=== PATIENT | male | born 1965 | race Caucasian/White ===

== ENCOUNTER 2024-02-12 11:17 | Inpatient (IN) | payer OTHER ==
[~2024-02-12] VITALS: Ht 182.9 cm; Wt 85.7 kg
[2024-02-12 11:17] VITALS: BP 148/84; PULSE 83; RESP 20; TEMP 99.1; O2SAT 97
[2024-02-12 14:34] LABS: BASOPHILS % (AUTO) 0.4 % (0.0-2.0); EOSINOPHILS # (AUTO) 0.1 K/uL (0-0.4); EOSINOPHILS % (AUTO) 0.9 % (0.0-4.0); HEMATOCRIT 34.4 % (36-52); HEMOGLOBIN 11.8 g/dL (12.0-18.0); LYMPHOCYTES # (AUTO) 1.8 K/uL (2.0-11.5); LYMPHOCYTES % (AUTO) 20.6 % (20.5-51.1); MEAN CORPUSCULAR HEMOGLOBIN 28 pg (27-31); MEAN CORPUSCULAR HGB CONC 34 g/dL (33-37); MEAN CORPUSCULAR VOLUME 82.5 fL (80-94); MONOCYTES # (AUTO) 1.2 K/uL (0.8-1.0); MONOCYTES % (AUTO) 13.2 % (1.7-9.3); NEUTROPHILS # (AUTO) 5.8 K/uL (1.8-7.7); NEUTROPHILS % (AUTO) 64.9 % (42.2-75.2); PLATELET COUNT (AUTO) 356 K/uL (140-450); RED BLOOD CELL COUNT(AUTO) 4.17 MIL/uL (4.20-6.10); WHITE BLOOD COUNT (AUTO) 8.9 K/uL (4.8-10.8)
[2024-02-12 14:47] LABS: ANION GAP 10.3 (8-16); CALCIUM 8.1 mg/dL (8.5-10.1); CARBON DIOXIDE 30.8 mmol/L (21-32); CREATININE 0.9 mg/dL (0.6-1.3); POTASSIUM 3.1 mmol/L (3.5-5.1)
[2024-02-12 15:20] LABS: ALBUMIN 2.8 g/dL (3.4-5.0); BILIRUBIN,DIRECT 0.2 mg/dL (0.0-0.3); TOTAL BILIRUBIN 0.7 mg/dL (0.0-1.0); TOTAL PROTEIN, SERUM 8.5 g/dL (6.4-8.2)
[2024-02-12] MEDS: NACL 0.9% 1,000 ML IV SCH ×2 (17:10→18:06)
[2024-02-12 17:13] LABS: INR 1.03 (0.8-1.2); PARTIAL THROMBOPLASTIN TIME 34.6 secs (22-35.6); PROTHROMBIN TIME 10.8 secs (10.8-13.4)
[2024-02-12] MEDS ORDERED: VANCOMYCIN 1,000 MG VIAL ONE (17:13)
[2024-02-12] MEDS ORDERED: cefTRIAXone 1,000 MG VIAL ONE (17:13)
[2024-02-12 17:19] LABS: LACTIC ACID 1.3 mmol/L (0.4-2.0)
[2024-02-12] MEDS: VANCOMYCIN 1,000 MG in DEXTROSE 5% 250 ML IV ONE (17:35)
[2024-02-12] MEDS: POTASSIUM CHLORIDE 20% 40 MEQ/15 ML UDC PO ONE (17:38)
[2024-02-12] MEDS: ACETAMINOPHEN 325 MG TAB PO ONE (17:39)
[2024-02-12] MEDS ORDERED: HYDROcodone/APAP 5/325 MG 1 TAB TAB PO PRN (17:40)
[2024-02-12] MEDS ORDERED: MORPHINE SULFATE 4 MG/ML SYR ONE (19:42)
[2024-02-12] MEDS ORDERED: ONDANSETRON 4 MG/2 ML VIAL ONE (19:42)
[2024-02-12] MEDS: MORPHINE SULFATE 4 MG/ML SYR IVP PRN (20:14)
[2024-02-12] MEDS: ONDANSETRON 4 MG/2 ML VIAL IVP PRN (20:14)
[2024-02-12 21:50] VITALS: BP 152/72; PULSE 93; RESP 19; TEMP 98.8; O2SAT 99
[2024-02-13 04:00] VITALS: BP 148/57; PULSE 107; RESP 18; TEMP 98.8; O2SAT 96
[2024-02-13 06:54] LABS: BASOPHILS % (AUTO) 0.3 % (0.0-2.0); EOSINOPHILS # (AUTO) 0.2 K/uL (0-0.4); EOSINOPHILS % (AUTO) 1.8 % (0.0-4.0); HEMATOCRIT 31.9 % (36-52); HEMOGLOBIN 10.9 g/dL (12.0-18.0); LYMPHOCYTES # (AUTO) 1.9 K/uL (2.0-11.5); LYMPHOCYTES % (AUTO) 22.7 % (20.5-51.1); MEAN CORPUSCULAR HEMOGLOBIN 28 pg (27-31); MEAN CORPUSCULAR HGB CONC 34 g/dL (33-37); MONOCYTES # (AUTO) 0.9 K/uL (0.8-1.0); MONOCYTES % (AUTO) 10.6 % (1.7-9.3); NEUTROPHILS # (AUTO) 5.4 K/uL (1.8-7.7); NEUTROPHILS % (AUTO) 64.6 % (42.2-75.2); PLATELET COUNT (AUTO) 273 K/uL (140-450); RED BLOOD CELL COUNT(AUTO) 3.85 MIL/uL (4.20-6.10); WHITE BLOOD COUNT (AUTO) 8.4 K/uL (4.8-10.8)
[2024-02-13 07:27] LABS: ANION GAP 12.3 (8-16); CALCIUM 8.1 mg/dL (8.5-10.1); CARBON DIOXIDE 27.5 mmol/L (21-32); CREATININE 1.1 mg/dL (0.6-1.3); POTASSIUM 3.8 mmol/L (3.5-5.1)
[2024-02-13 12:00] VITALS: BP 140/57; PULSE 107; RESP 18; TEMP 98.8; O2SAT 96
[2024-02-13] MEDS: MAG SULF 2000 MG/WATER PREMIX 100 ML IV SCH (12:50)
[2024-02-13] MEDS ORDERED: METF-346 PO (18:39)
[2024-02-13] MEDS ORDERED: CARV3.12 PO (18:39)
[2024-02-13] MEDS ORDERED: LISI-486 PO (18:39)
[2024-02-13 20:00] VITALS: BP 122/94; PULSE 110; RESP 18; TEMP 96.7; O2SAT 96
[2024-02-14] MEDS ORDERED: DEXTROSE 50% 50 ML SYR IVP PRN (03:20)
[2024-02-14 04:00] VITALS: BP 143/70; PULSE 110; RESP 18; TEMP 98.1; O2SAT 96
[2024-02-14] MEDS: BLOOD GLUCOSE MONITORING 1 DEV DEV FS SCH (06:41)
[2024-02-14 06:54] LABS: BASOPHILS % (AUTO) 0.5 % (0.0-2.0); EOSINOPHILS % (AUTO) 0.5 % (0.0-4.0); HEMATOCRIT 29.3 % (36-52); HEMOGLOBIN 9.9 g/dL (12.0-18.0); LYMPHOCYTES # (AUTO) 1.4 K/uL (2.0-11.5); LYMPHOCYTES % (AUTO) 17.1 % (20.5-51.1); MEAN CORPUSCULAR HEMOGLOBIN 28 pg (27-31); MEAN CORPUSCULAR HGB CONC 34 g/dL (33-37); MONOCYTES # (AUTO) 0.8 K/uL (0.8-1.0); NEUTROPHILS # (AUTO) 5.8 K/uL (1.8-7.7); NEUTROPHILS % (AUTO) 71.9 % (42.2-75.2); PLATELET COUNT (AUTO) 285 K/uL (140-450); RED BLOOD CELL COUNT(AUTO) 3.53 MIL/uL (4.20-6.10); RED CELL DISTRIBUTION WIDTH 15.1 % (11.6-13.7); WHITE BLOOD COUNT (AUTO) 8.1 K/uL (4.8-10.8)
[2024-02-14 07:56] LABS: ANION GAP 12.1 (8-16); CALCIUM 7.8 mg/dL (8.5-10.1); CARBON DIOXIDE 26.7 mmol/L (21-32); POTASSIUM 3.8 mmol/L (3.5-5.1)
[2024-02-14 08:00] VITALS: PULSE 85; RESP 18
[2024-02-14 12:00] VITALS: BP 140/83; PULSE 88; RESP 18; TEMP 98.5; O2SAT 96
[2024-02-14 20:00] VITALS: BP 150/71; PULSE 95; RESP 18; TEMP 97.8; O2SAT 93
[2024-02-14] MEDS: INSULIN LISPRO SLIDING SCALE 100 UNITS/ML VIAL SUBQ PRN (20:42)
[2024-02-15 04:00] VITALS: BP 149/64; PULSE 93; RESP 18; TEMP 97.9; O2SAT 95
[2024-02-15 06:42] LABS: BASOPHILS # (AUTO) 0.1 K/uL (0.00-0.22); BASOPHILS % (AUTO) 0.6 % (0.0-2.0); EOSINOPHILS # (AUTO) 0.1 K/uL (0-0.4); EOSINOPHILS % (AUTO) 0.8 % (0.0-4.0); HEMOGLOBIN 9.2 g/dL (12.0-18.0); LYMPHOCYTES # (AUTO) 1.5 K/uL (2.0-11.5); LYMPHOCYTES % (AUTO) 16.1 % (20.5-51.1); MEAN CORPUSCULAR HEMOGLOBIN 28 pg (27-31); MEAN CORPUSCULAR HGB CONC 34 g/dL (33-37); MEAN CORPUSCULAR VOLUME 82.8 fL (80-94); MONOCYTES # (AUTO) 0.8 K/uL (0.8-1.0); MONOCYTES % (AUTO) 8.8 % (1.7-9.3); NEUTROPHILS # (AUTO) 6.7 K/uL (1.8-7.7); NEUTROPHILS % (AUTO) 73.7 % (42.2-75.2); PLATELET COUNT (AUTO) 285 K/uL (140-450); RED BLOOD CELL COUNT(AUTO) 3.26 MIL/uL (4.20-6.10); WHITE BLOOD COUNT (AUTO) 9.1 K/uL (4.8-10.8)
[2024-02-15 06:54] LABS: ANION GAP 13.5 (8-16); CALCIUM 7.7 mg/dL (8.5-10.1); CARBON DIOXIDE 26.3 mmol/L (21-32); CREATININE 0.9 mg/dL (0.6-1.3); POTASSIUM 3.8 mmol/L (3.5-5.1)
[2024-02-15 08:00] VITALS: PULSE 90; RESP 18; O2SAT 93
[2024-02-15] MEDS: MAGNESIUM OXIDE 400 MG TAB PO PRN (11:46)
[2024-02-15 12:00] VITALS: BP 134/90; PULSE 90; RESP 18; TEMP 98.3; O2SAT 95
[2024-02-15] MEDS: GAUZE TP SCH (13:00)
[2024-02-15] MEDS: ACETAMINOPHEN 325 MG TAB PO PRN (16:20)
[2024-02-15 20:00] VITALS: BP 145/58; PULSE 87; PULSE 95; RESP 19; RESP 20; TEMP 98.2; O2SAT 100; O2SAT 96
[2024-02-16 04:00] VITALS: BP 146/62; PULSE 95; RESP 19; TEMP 99; O2SAT 96
[2024-02-16 06:38] LABS: BASOPHILS % (AUTO) 0.3 % (0.0-2.0); EOSINOPHILS # (AUTO) 0.2 K/uL (0-0.4); EOSINOPHILS % (AUTO) 1.8 % (0.0-4.0); HEMATOCRIT 26.9 % (36-52); HEMOGLOBIN 9.1 g/dL (12.0-18.0); LYMPHOCYTES # (AUTO) 1.3 K/uL (2.0-11.5); LYMPHOCYTES % (AUTO) 13.8 % (20.5-51.1); MEAN CORPUSCULAR HEMOGLOBIN 28 pg (27-31); MEAN CORPUSCULAR HGB CONC 34 g/dL (33-37); MEAN CORPUSCULAR VOLUME 83.6 fL (80-94); MONOCYTES # (AUTO) 0.8 K/uL (0.8-1.0); MONOCYTES % (AUTO) 8.7 % (1.7-9.3); NEUTROPHILS # (AUTO) 7.1 K/uL (1.8-7.7); NEUTROPHILS % (AUTO) 75.4 % (42.2-75.2); PLATELET COUNT (AUTO) 290 K/uL (140-450); RED BLOOD CELL COUNT(AUTO) 3.22 MIL/uL (4.20-6.10); WHITE BLOOD COUNT (AUTO) 9.4 K/uL (4.8-10.8)
[2024-02-16 07:11] LABS: ANION GAP 13.9 (8-16); CALCIUM 7.9 mg/dL (8.5-10.1); CARBON DIOXIDE 25.8 mmol/L (21-32); CREATININE 0.9 mg/dL (0.6-1.3); POTASSIUM 3.7 mmol/L (3.5-5.1)
[2024-02-16 08:34] VITALS: PULSE 89; RESP 20; O2SAT 99
[2024-02-16 12:00] VITALS: BP 135/57; PULSE 89; RESP 18; TEMP 97.1; O2SAT 96
[2024-02-16 16:00] VITALS: BP 142/98; PULSE 92; RESP 20; TEMP 98.1; O2SAT 96
[2024-02-16 20:00] VITALS: BP 145/54; PULSE 100; RESP 19; TEMP 98.2; O2SAT 96; O2SAT 97
[2024-02-16] MEDS: MAG SULF 2000 MG/WATER PREMIX 50 ML IV ONE (22:08)
[2024-02-17 06:40] LABS: BASOPHILS % (AUTO) 0.6 % (0.0-2.0); EOSINOPHILS # (AUTO) 0.3 K/uL (0-0.4); EOSINOPHILS % (AUTO) 3.5 % (0.0-4.0); HEMATOCRIT 27.6 % (36-52); HEMOGLOBIN 9.4 g/dL (12.0-18.0); LYMPHOCYTES # (AUTO) 1.2 K/uL (2.0-11.5); LYMPHOCYTES % (AUTO) 14.6 % (20.5-51.1); MEAN CORPUSCULAR HEMOGLOBIN 28 pg (27-31); MEAN CORPUSCULAR HGB CONC 34 g/dL (33-37); MEAN CORPUSCULAR VOLUME 82.8 fL (80-94); MONOCYTES # (AUTO) 0.7 K/uL (0.8-1.0); MONOCYTES % (AUTO) 8.5 % (1.7-9.3); NEUTROPHILS # (AUTO) 5.9 K/uL (1.8-7.7); NEUTROPHILS % (AUTO) 72.8 % (42.2-75.2); PLATELET COUNT (AUTO) 331 K/uL (140-450); RED BLOOD CELL COUNT(AUTO) 3.34 MIL/uL (4.20-6.10); RED CELL DISTRIBUTION WIDTH 15.3 % (11.6-13.7); WHITE BLOOD COUNT (AUTO) 8.2 K/uL (4.8-10.8)
[2024-02-17 07:12] LABS: ANION GAP 12.4 (8-16); CALCIUM 8.2 mg/dL (8.5-10.1); CARBON DIOXIDE 27.5 mmol/L (21-32); CREATININE 0.9 mg/dL (0.6-1.3); POTASSIUM 3.9 mmol/L (3.5-5.1)
[2024-02-17 08:00] VITALS: BP 135/65; PULSE 100; PULSE 99; RESP 20; TEMP 98.1; O2SAT 99
[2024-02-17 16:00] VITALS: BP 145/64; PULSE 98; RESP 19; TEMP 97.9; O2SAT 98
[2024-02-17 20:00] VITALS: BP 172/80; PULSE 140; PULSE 96; RESP 18; TEMP 98.5; O2SAT 98; O2SAT 99
[2024-02-17 21:00] VITALS: BP 134/61; PULSE 96
[2024-02-18 04:00] VITALS: BP 126/61; PULSE 90; RESP 18; TEMP 97.5; O2SAT 98
[2024-02-18 08:00] VITALS: BP 140/67; PULSE 86; PULSE 99; RESP 18; RESP 20; TEMP 97.8; O2SAT 100; O2SAT 98
[2024-02-18 12:00] VITALS: BP 140/83; PULSE 86; RESP 20; TEMP 98.5; O2SAT 98
[2024-02-18 20:00] VITALS: BP 127/83; PULSE 88; PULSE 99; RESP 16; TEMP 97.2; O2SAT 100; O2SAT 99
[2024-02-19 04:00] VITALS: BP 132/85; PULSE 79; RESP 16; TEMP 97.2; O2SAT 98
[2024-02-19 07:25] LABS: BASOPHILS % (AUTO) 0.4 % (0.0-2.0); EOSINOPHILS # (AUTO) 0.3 K/uL (0-0.4); EOSINOPHILS % (AUTO) 3.3 % (0.0-4.0); HEMATOCRIT 29.7 % (36-52); HEMOGLOBIN 9.9 g/dL (12.0-18.0); LYMPHOCYTES # (AUTO) 1.1 K/uL (2.0-11.5); LYMPHOCYTES % (AUTO) 13.8 % (20.5-51.1); MEAN CORPUSCULAR HEMOGLOBIN 28 pg (27-31); MEAN CORPUSCULAR HGB CONC 33 g/dL (33-37); MEAN CORPUSCULAR VOLUME 83.6 fL (80-94); MONOCYTES # (AUTO) 0.6 K/uL (0.8-1.0); MONOCYTES % (AUTO) 7.1 % (1.7-9.3); NEUTROPHILS # (AUTO) 6.3 K/uL (1.8-7.7); NEUTROPHILS % (AUTO) 75.4 % (42.2-75.2); PLATELET COUNT (AUTO) 394 K/uL (140-450); RED BLOOD CELL COUNT(AUTO) 3.55 MIL/uL (4.20-6.10); RED CELL DISTRIBUTION WIDTH 15.2 % (11.6-13.7); WHITE BLOOD COUNT (AUTO) 8.3 K/uL (4.8-10.8)
[2024-02-19 07:32] LABS: ANION GAP 13.6 (8-16); CALCIUM 8.2 mg/dL (8.5-10.1); CARBON DIOXIDE 27.1 mmol/L (21-32); CREATININE 0.8 mg/dL (0.6-1.3); POTASSIUM 3.7 mmol/L (3.5-5.1)
[2024-02-19] MEDS: BUPIVACAINE-MPF 0.25% 30 ML VIAL INJ ONE (07:32)
[2024-02-19] MEDS: ceFAZolin 2,000 MG VIAL ONE (07:32)
[2024-02-19] MEDS: LIDOCAINE 2% 1000 MG/50 ML VIAL INJ ONE (07:32)
[2024-02-19 08:00] VITALS: PULSE 99; RESP 16; O2SAT 100
[2024-02-19 12:00] VITALS: BP 146/88; PULSE 99; RESP 16; TEMP 97.7; O2SAT 100
[2024-02-19 12:33] VITALS: PULSE 135
[2024-02-19 16:00] VITALS: PULSE 90
[2024-02-19] MEDS: AMIODARONE 200 MG TAB PO SCH (17:59)
[2024-02-19] MEDS: ECOTRIN 81 MG TABEC PO SCH (17:59)
[2024-02-19 20:00] VITALS: BP 143/90; PULSE 95; RESP 16; TEMP 98.3; O2SAT 99
[2024-02-19] MEDS: carvediloL 3.125 MG TAB PO SCH (21:00)
[2024-02-20] VITALS (10 sets, daily range): BP systolic 114–159; BP diastolic 53–87; PULSE 16–110; RESP 16–18; TEMP 97–97.9; O2SAT 99–100
[2024-02-20 06:40] LABS: BASOPHILS % (AUTO) 0.5 % (0.0-2.0); EOSINOPHILS # (AUTO) 0.2 K/uL (0-0.4); EOSINOPHILS % (AUTO) 2.8 % (0.0-4.0); HEMATOCRIT 25.9 % (36-52); HEMOGLOBIN 8.6 g/dL (12.0-18.0); LYMPHOCYTES # (AUTO) 1.3 K/uL (2.0-11.5); LYMPHOCYTES % (AUTO) 15.5 % (20.5-51.1); MEAN CORPUSCULAR HEMOGLOBIN 28 pg (27-31); MEAN CORPUSCULAR HGB CONC 33 g/dL (33-37); MEAN CORPUSCULAR VOLUME 83.4 fL (80-94); MONOCYTES # (AUTO) 0.6 K/uL (0.8-1.0); MONOCYTES % (AUTO) 7.4 % (1.7-9.3); NEUTROPHILS # (AUTO) 6.2 K/uL (1.8-7.7); NEUTROPHILS % (AUTO) 73.8 % (42.2-75.2); PLATELET COUNT (AUTO) 368 K/uL (140-450); RED BLOOD CELL COUNT(AUTO) 3.11 MIL/uL (4.20-6.10); RED CELL DISTRIBUTION WIDTH 15.6 % (11.6-13.7); WHITE BLOOD COUNT (AUTO) 8.4 K/uL (4.8-10.8)
[2024-02-20 06:55] LABS: INR 1.14 (0.8-1.2); PARTIAL THROMBOPLASTIN TIME 28.8 secs (22-35.6); PROTHROMBIN TIME 11.9 secs (10.8-13.4)
[2024-02-20 07:01] LABS: ANION GAP 13.4 (8-16); CALCIUM 7.9 mg/dL (8.5-10.1); CREATININE 0.8 mg/dL (0.6-1.3); POTASSIUM 3.4 mmol/L (3.5-5.1)
[2024-02-20] MEDS: LOSARTAN 25 MG TAB PO SCH (08:21)
[2024-02-20] MEDS: ATORVASTATIN 20 MG TAB PO SCH (08:22)
[2024-02-20] MEDS: POTASSIUM CHLORIDE 10 MEQ TABER PO PRN (08:23)
[2024-02-20] MEDS ORDERED: LACTULOSE 20 GM/30 ML UDC PO PRN (09:00)
[2024-02-20] MEDS: DOCUSATE SODIUM 100 MG GELCAP PO PRN (17:26)
[2024-02-20] MEDS: HYDROcodone/APAP 5/325 MG 1 TAB TAB PO PRN (17:26)
[2024-02-21] VITALS (7 sets, daily range): BP systolic 123–146; BP diastolic 27–66; PULSE 63–111; RESP 16–18; TEMP 96.9–97.6; O2SAT 98–100
[2024-02-21 07:21] LABS: BASOPHILS # (AUTO) 0.1 K/uL (0.00-0.22); BASOPHILS % (AUTO) 0.8 % (0.0-2.0); EOSINOPHILS # (AUTO) 0.2 K/uL (0-0.4); EOSINOPHILS % (AUTO) 3.1 % (0.0-4.0); HEMATOCRIT 28.7 % (36-52); HEMOGLOBIN 9.6 g/dL (12.0-18.0); LYMPHOCYTES # (AUTO) 1.6 K/uL (2.0-11.5); LYMPHOCYTES % (AUTO) 20.1 % (20.5-51.1); MEAN CORPUSCULAR HEMOGLOBIN 28 pg (27-31); MEAN CORPUSCULAR HGB CONC 34 g/dL (33-37); MONOCYTES # (AUTO) 0.6 K/uL (0.8-1.0); MONOCYTES % (AUTO) 7.6 % (1.7-9.3); NEUTROPHILS # (AUTO) 5.4 K/uL (1.8-7.7); NEUTROPHILS % (AUTO) 68.4 % (42.2-75.2); PLATELET COUNT (AUTO) 427 K/uL (140-450); RED BLOOD CELL COUNT(AUTO) 3.42 MIL/uL (4.20-6.10); RED CELL DISTRIBUTION WIDTH 15.7 % (11.6-13.7)
[2024-02-21 07:41] LABS: ANION GAP 14.7 (8-16); CALCIUM 8.2 mg/dL (8.5-10.1); CARBON DIOXIDE 25.5 mmol/L (21-32); CREATININE 0.9 mg/dL (0.6-1.3); POTASSIUM 4.2 mmol/L (3.5-5.1)
[2024-02-21] MEDS: GABAPENTIN 300 MG CAP PO PRN (21:26)
[2024-02-22] VITALS (9 sets, daily range): BP systolic 127–151; BP diastolic 50–78; PULSE 58–69; RESP 18–20; TEMP 96.6–97.7; O2SAT 94–100
[2024-02-22 07:04] LABS: BASOPHILS % (AUTO) 0.5 % (0.0-2.0); EOSINOPHILS # (AUTO) 0.2 K/uL (0-0.4); EOSINOPHILS % (AUTO) 2.4 % (0.0-4.0); HEMATOCRIT 28.2 % (36-52); HEMOGLOBIN 9.2 g/dL (12.0-18.0); LYMPHOCYTES # (AUTO) 1.8 K/uL (2.0-11.5); LYMPHOCYTES % (AUTO) 21.8 % (20.5-51.1); MEAN CORPUSCULAR HEMOGLOBIN 28 pg (27-31); MEAN CORPUSCULAR HGB CONC 33 g/dL (33-37); MEAN CORPUSCULAR VOLUME 84.9 fL (80-94); MONOCYTES # (AUTO) 0.7 K/uL (0.8-1.0); MONOCYTES % (AUTO) 8.1 % (1.7-9.3); NEUTROPHILS # (AUTO) 5.5 K/uL (1.8-7.7); NEUTROPHILS % (AUTO) 67.2 % (42.2-75.2); PLATELET COUNT (AUTO) 410 K/uL (140-450); RED BLOOD CELL COUNT(AUTO) 3.32 MIL/uL (4.20-6.10); RED CELL DISTRIBUTION WIDTH 16.1 % (11.6-13.7); WHITE BLOOD COUNT (AUTO) 8.1 K/uL (4.8-10.8)
[2024-02-22 07:12] LABS: ANION GAP 12.8 (8-16); CALCIUM 8.1 mg/dL (8.5-10.1); CARBON DIOXIDE 25.2 mmol/L (21-32)
[2024-02-22] MEDS: BUPIVACAINE-MPF 0.5% 30 ML VIAL INJ ONE (07:23)
[2024-02-22] MEDS: HYDROGEN PEROXIDE 3% 240 ML BTL TP ONE (07:23)
[2024-02-22] MEDS: MIDAZOLAM 2 MG/2 ML VIAL ONE (07:44)
[2024-02-22] MEDS: fentaNYL citrate 0.05 MG/ML VIAL ONE (07:45)
[2024-02-22] MEDS: ceFAZolin 2,000 MG VIAL ONE (07:46)
[2024-02-22] MEDS: BUPIVACAINE-MPF 0.25% 30 ML VIAL INJ ONE (08:03)
[2024-02-22] MEDS: LIDOCAINE 2% 1000 MG/50 ML VIAL INJ ONE (08:03)
[2024-02-22] MEDS ORDERED: ONDANSETRON 4 MG/2 ML VIAL IVP PRN (08:25)
[2024-02-22] MEDS ORDERED: HYDROmorphone 1 MG/ML AMP IVP PRN (08:25)
[2024-02-22] MEDS: BLOOD GLUCOSE MONITORING 1 DEV DEV FS ONE (08:25)
[2024-02-23] VITALS: BP 150/48; PULSE 59; PULSE 67; RESP 20; TEMP 97; O2SAT 96
[2024-02-23 04:02] VITALS: PULSE 58
[2024-02-23 06:59] LABS: BASOPHILS % (AUTO) 0.4 % (0.0-2.0); EOSINOPHILS # (AUTO) 0.1 K/uL (0-0.4); EOSINOPHILS % (AUTO) 1.6 % (0.0-4.0); HEMATOCRIT 27.9 % (36-52); HEMOGLOBIN 9.1 g/dL (12.0-18.0); LYMPHOCYTES # (AUTO) 1.9 K/uL (2.0-11.5); MEAN CORPUSCULAR HEMOGLOBIN 28 pg (27-31); MEAN CORPUSCULAR HGB CONC 33 g/dL (33-37); MEAN CORPUSCULAR VOLUME 85.1 fL (80-94); MONOCYTES # (AUTO) 0.6 K/uL (0.8-1.0); MONOCYTES % (AUTO) 7.6 % (1.7-9.3); NEUTROPHILS % (AUTO) 65.4 % (42.2-75.2); PLATELET COUNT (AUTO) 426 K/uL (140-450); RED BLOOD CELL COUNT(AUTO) 3.28 MIL/uL (4.20-6.10); RED CELL DISTRIBUTION WIDTH 16.2 % (11.6-13.7); WHITE BLOOD COUNT (AUTO) 7.6 K/uL (4.8-10.8)
[2024-02-23 07:00] LABS: ANION GAP 14.3 (8-16); CALCIUM 8.1 mg/dL (8.5-10.1); CARBON DIOXIDE 25.1 mmol/L (21-32); POTASSIUM 4.4 mmol/L (3.5-5.1)
[2024-02-23 08:00] VITALS: BP 146/58; PULSE 82; RESP 20; TEMP 96.5; O2SAT 98; O2SAT 99
[2024-02-23 12:00] VITALS: BP 164/60; PULSE 69; RESP 18; TEMP 96.7; O2SAT 98
[2024-02-23] MEDS: oxyCODONE 10 MG TABER PO PRN (15:20)
[2024-02-23 16:00] VITALS: BP 146/64; PULSE 65; RESP 18; TEMP 96.9; O2SAT 99
[2024-02-23 20:00] VITALS: BP 132/60; PULSE 64; PULSE 92; RESP 18; TEMP 97.4; O2SAT 100
[2024-02-23] MEDS: oxyCODONE/APAP 5/325 MG 1 TAB TAB PO PRN (20:57)
[2024-02-24] VITALS (9 sets, daily range): BP systolic 142–169; BP diastolic 56–76; PULSE 53–70; RESP 16–20; TEMP 96.8–97.6; O2SAT 98–100
[2024-02-24 07:21] LABS: BASOPHILS % (AUTO) 0.3 % (0.0-2.0); EOSINOPHILS % (AUTO) 0.7 % (0.0-4.0); HEMATOCRIT 26.9 % (36-52); HEMOGLOBIN 8.9 g/dL (12.0-18.0); LYMPHOCYTES # (AUTO) 1.3 K/uL (2.0-11.5); MEAN CORPUSCULAR HEMOGLOBIN 28 pg (27-31); MEAN CORPUSCULAR HGB CONC 33 g/dL (33-37); MEAN CORPUSCULAR VOLUME 85.1 fL (80-94); MONOCYTES # (AUTO) 0.4 K/uL (0.8-1.0); MONOCYTES % (AUTO) 6.1 % (1.7-9.3); NEUTROPHILS % (AUTO) 73.9 % (42.2-75.2); PLATELET COUNT (AUTO) 399 K/uL (140-450); RED BLOOD CELL COUNT(AUTO) 3.17 MIL/uL (4.20-6.10); RED CELL DISTRIBUTION WIDTH 16.2 % (11.6-13.7); WHITE BLOOD COUNT (AUTO) 6.8 K/uL (4.8-10.8)
[2024-02-24 07:41] LABS: ANION GAP 14.4 (8-16); CALCIUM 7.7 mg/dL (8.5-10.1); CARBON DIOXIDE 24.2 mmol/L (21-32); POTASSIUM 3.6 mmol/L (3.5-5.1)
[2024-02-25] VITALS: BP 140/68; PULSE 61; PULSE 67; RESP 17; TEMP 97.3; O2SAT 98
[2024-02-25] MEDS: cefTRIAXone 1,000 MG VIAL ONE (00:18)
[2024-02-25 04:00] VITALS: BP 149/68; PULSE 54; PULSE 59; RESP 17; TEMP 97; O2SAT 98
[2024-02-25 06:54] LABS: BASOPHILS % (AUTO) 0.5 % (0.0-2.0); EOSINOPHILS # (AUTO) 0.1 K/uL (0-0.4); EOSINOPHILS % (AUTO) 1.4 % (0.0-4.0); HEMATOCRIT 26.8 % (36-52); LYMPHOCYTES # (AUTO) 1.5 K/uL (2.0-11.5); LYMPHOCYTES % (AUTO) 20.5 % (20.5-51.1); MEAN CORPUSCULAR HEMOGLOBIN 29 pg (27-31); MEAN CORPUSCULAR HGB CONC 33 g/dL (33-37); MEAN CORPUSCULAR VOLUME 85.3 fL (80-94); MONOCYTES # (AUTO) 0.5 K/uL (0.8-1.0); MONOCYTES % (AUTO) 7.4 % (1.7-9.3); NEUTROPHILS # (AUTO) 5.1 K/uL (1.8-7.7); NEUTROPHILS % (AUTO) 70.2 % (42.2-75.2); PLATELET COUNT (AUTO) 399 K/uL (140-450); RED BLOOD CELL COUNT(AUTO) 3.15 MIL/uL (4.20-6.10); RED CELL DISTRIBUTION WIDTH 16.1 % (11.6-13.7); WHITE BLOOD COUNT (AUTO) 7.2 K/uL (4.8-10.8)
[2024-02-25 07:15] VITALS: O2SAT 100
[2024-02-25 07:46] LABS: ANION GAP 13.5 (8-16); CALCIUM 7.7 mg/dL (8.5-10.1); CARBON DIOXIDE 25.1 mmol/L (21-32); CREATININE 1.1 mg/dL (0.6-1.3); POTASSIUM 3.6 mmol/L (3.5-5.1)
[2024-02-25 08:20] VITALS: PULSE 68; RESP 20; O2SAT 99
[2024-02-25 12:00] VITALS: PULSE 63
[2024-02-25] MEDS ORDERED: LACT1CAP81 PO (15:15)
[2024-02-25] MEDS ORDERED: AMOX1TAB15 PO (15:15)
[2024-02-25 16:00] VITALS: PULSE 58
[2024-02-25] MEDS: FUROSEMIDE 20 MG/2 ML VIAL IVP SCH (17:33)
[2024-02-25] MEDS ORDERED: cephALEXin 500 MG CAP PO SCH (18:00)
== END 2024-02-25 20:10 | disposition home or self-care (01) | DRG 710 ==
LOC: MED 11:17 → MMU 17:39 → OBSVTOIN 17:39 → MTU 19:27
PROVIDERS: ADMIT Student in an Organized Health Care Education/Training Program; ATTEND Student in an Organized Health Care Education/Training Program
PROC: 0QBN0ZZ Excision of Right Metatarsal, Open Approach (ICD-10-PCS; 2024-02-22)
PROC: 0Y9M0ZZ Drainage of Right Foot, Open Approach (ICD-10-PCS; principal; 2024-02-22 07:30)
DX: A41.9 Sepsis, unspecified organism (principal); E11.00 Type 2 diabetes mellitus with hyperosmolarity without nonketotic hyperglycemic-hyperosmolar coma (NKHHC); M86.171 Other acute osteomyelitis, right ankle and foot; E11.621 Type 2 diabetes mellitus with foot ulcer; E11.51 Type 2 diabetes mellitus with diabetic peripheral angiopathy without gangrene; I48.4 Atypical atrial flutter; L03.115 Cellulitis of right lower limb; I11.0 Hypertensive heart disease with heart failure; I50.22 Chronic systolic (congestive) heart failure; E11.69 Type 2 diabetes mellitus with other specified complication; E11.65 Type 2 diabetes mellitus with hyperglycemia; E78.5 Hyperlipidemia, unspecified; E87.6 Hypokalemia; I25.10 Atherosclerotic heart disease of native coronary artery without angina pectoris; Z89.512 Acquired absence of left leg below knee; I25.2 Old myocardial infarction
CPT/HCPCS: 36415; 71045; 73630; 73700; 80048; 80076; 82948; 83605; 83735; 84484; 85025; 85610; 85730; 87040; 87070; 87075; 87081; 87186; 87205; 93005; 93925; 96365; 96366; 96368; 99285; J0696; J1644; J1815; J1940; J2001; J2250; J2270; J2405; J3010; J3370; J3475; J3490; J7030; J7060; Q0092; Q4128